=== PATIENT | female | born 1965 | race Caucasian/White ===

== ENCOUNTER 2017-07-08 16:50 | Observation (INO) ==
--- NOTE | 2017-07-08 17:53 | Emergency Department Note ---
Disposition Clinical Impression: Slurred speech Altered mental status Qualifiers: Altered mental status type: unspecified Qualified Code(s): R41.82 - Altered mental status, unspecified Disposition: Admitted As Inpatient Condition: Good Referrals: Mukul Reddy DO [Primary Care Provider] - Forms: Work/School Release, ED Satisfaction Letter Time of Disposition: 19:30 General Adult HPI - General Chief complaint: ED General Medical Stated complaint: htn Time Seen by Provider: 07/08/17 17:44 Source: patient Mode of arrival: ambulatory Limitations: no limitations Nursing Notes Reviewed: Yes Vital Signs Reviewed: Yes - History of Present Illness HPI Narrative: 51-year-old who comes in after an episode began last p.m. which she developed slurred speech became confused and not able to answer questions appropriately and she was unresponsive to the family members. This lasted several hours. She had a similar episode about 4 weeks ago. Her speech is cleared since that time. Pt Subjective Complaint: Altered mental status Onset (ago): hour(s) Pain Scale: 0 - Related Data Home Medications Medication Instructions Recorded Confirmed Albuterol Sulfate [Proair Hfa] 2 puff IH Q4H PRN 07/02/17 07/02/17 Amitriptyline [Elavil] 25 mg PO HS 07/02/17 07/02/17 Amlodipine Besylate 2.5 mg PO DAILY 07/02/17 07/02/17 Ammonium Lactate [Leydi-Hydrolac] 1 appl TP DAILY PRN 07/02/17 07/02/17 Cholecalciferol (Vitamin D3) 5,000 unit PO DAILY 07/02/17 07/02/17 [Vitamin D3] Cyanocobalamin (Vitamin B-12) 1,000 mcg PO MOWEFR 07/02/17 07/02/17 [Vitamin B12] FLUoxetine HCl [Fluoxetine HCl] 40 mg PO QAM 07/02/17 07/02/17 Fluticasone Propionate Nasal 50 mcg NS DAILY PRN 07/02/17 07/02/17 [Flonase] Glimepiride [Amaryl] 1 mg PO QAM 07/02/17 07/02/17 Glimepiride [Amaryl] 1.5 mg PO QPM 07/02/17 07/02/17 HYDROcodone/Acet 5/325 mg [[place] 1 tab PO BID PRN 07/02/17 07/02/17 5-325 mg] L. Acidophilus/Pectin, [place] 1 each PO DAILY 07/02/17 07/02/17 [Acidophilus Probiotic Capsule] Loratadine [Claritin] 10 mg PO DAILY PRN 07/02/17 07/02/17 Metformin HCl [Glucophage] 1,000 mg PO BID 07/02/17 07/02/17 Metoprolol [Lopressor] 25 mg PO BID 07/02/17 07/02/17 Tizanidine HCl [Zanaflex] 4 mg PO TID PRN 07/02/17 07/02/17 Valsartan [Diovan] 160 mg PO DAILY 07/02/17 07/02/17 Previous Rx's Medication Instructions Recorded Aspirin Enteric Coated [Aspirin EC] 81 mg PO DAILY #30 07/03/17 Rosuvastatin [Crestor] 20 mg PO HS #30 tab 07/03/17 predniSONE [PredniSONE] 20 mg PO DAILY #4 tab 07/03/17 Allergies Allergy/AdvReac Type Severity Reaction Status Date / Time Amoxicillin [From Augmentin] AdvReac Vomiting Verified 07/01/17 23:33 clavulanic acid AdvReac Vomiting Verified 07/01/17 23:33 [From Augmentin] [id number]-Uoy Reductase AdvReac Muscle Pain Verified 07/02/17 03:34 Inhibitor [Statins] All systems ED: reviewed and negative except as stated. Constitutional: Denies: fever, chills, weakness, weight change Eyes: Denies: eye pain, eye discharge, vision change ENT ED: Denies: ear pain, throat pain, dental pain, hearing loss, epistaxis, congestion, dysphagia Cardiovascular: Denies: chest pain, palpitations, dyspnea on exertion, edema, syncope Respiratory: Denies: cough, dyspnea, wheezes, hemoptysis, stridor Gastrointestinal: Denies: abdominal pain, nausea, vomiting, diarrhea, constipation, hematemesis, melena, hematochezia Genitourinary: Denies: dysuria, frequency, hematuria, discharge Musculoskeletal: Denies: back pain, neck pain, arthralgia, myalgia Integumentary: Denies: rash, abrasion, lesions Neurological: Reports: confusion, other (Altered mental status and slurred speech). Denies: headache, weakness, numbness, paresthesias, abnormal gait, vertigo Psychiatric: Denies: anxiety, depression, suicidal thoughts, homicidal thoughts , auditory hallucinations, visual hallucinations Endocrine: Denies: fatigue Hematological/Lymphatic: Denies: easy bleeding, easy bruising Allergic/Immunologic: Denies: facial swelling, urticaria Past Medical History - Past Medical History Medical history: Reports: arthritis, diabetes, fibromyalgia, hyperlipidemia, hypertension, renal disease, other Surgical history: Reports: cholecystectomy, other Psychiatric history: Reports: anxiety, depression - Social History Smoking Status: Never smoker Smokeless Tobacco Status: No Alcohol use: Reports: none Drug use: Reports: none Physical Exam - General Limitations: no limitations General appearance: alert - Head Head exam: atraumatic, normocephalic, normal inspection - Eye Eye exam: Present: normal appearance, PERRL, EOMI - ENT ENT exam: normal exam, normal oropharynx, mucous membranes moist - Neck Neck exam: Present: normal inspection, full ROM, trachea midline - Chest Chest inspection: Present: normal inspection, symmetric chest wall rise - Respiratory Respiratory exam: Present: normal lung sounds bilaterally - Cardiovascular Cardiovascular exam: Present: regular rate, normal rhythm, normal heart sounds - Abdominal Exam Abdominal exam: Present: soft, Non-Tender. Absent: tenderness, distention, guarding, rebound, rigidity - Extremities Exam Extremities exam: Present: normal inspection, full ROM. Absent: tenderness, pedal edema - Expanded Lower Extremity Exam Neurovascular/Tendon exam: Absent: motor deficit, sensory deficit, tendon deficit Gait: observed and normal - Back Exam Back exam: Present: normal inspection, full ROM. Absent: tenderness - Neurological Exam Neurological exam: Present: alert, oriented X3. Absent: motor sensory deficit - Psychiatric Psychiatric exam: Present: normal affect, normal mood - Skin Skin exam: Present: warm, dry, intact, normal color Course - Reevaluation(s) Reevaluation #1: 51-year-old who had episodes of confusion and slurred speech and unresponsiveness earlier today she had a previous episode about 4 weeks ago. She is awake alert now family members are here and states the not sure what happens but she has slurred speech cannot communicate is confused. Differential includes seizure, TIA with slurred speech that resolved. Will be admitted for further evaluation and treatment. Time: 19:31 - Consultations Consultation #1: Discussed with , admit. Time: 19:57 Vital Signs Temperature 98.5 F 07/08/17 16:53 Pulse Rate 86 07/08/17 16:53 Respiratory Rate 16 07/08/17 16:53 Blood Pressure 169/83 07/08/17 16:53 O2 Sat by Pulse Oximetry 95 07/08/17 16:53 Temperature 98.5 F 07/08/17 16:53 Pulse Rate 80 07/08/17 19:35 Respiratory Rate 18 07/08/17 19:35 Blood Pressure 148/81 07/08/17 19:35 O2 Sat by Pulse Oximetry 98 07/08/17 19:35 Oxygen Delivery Oxygen Delivery Room Air Medical Decision Making - Differential Diagnosis Seizure disorder TIA - Lab Data Result diagrams: 07/08/17 18:26 07/08/17 18:26 Lab Results 07/08/17 07/08/17 07/08/17 Range/Units 18:26 18:26 18:26 WBC 12.3 H (4.3-11.1) K/mcL RBC 4.27 (3.82-4.97) M/mcL Hgb 11.3 L (11.5-15.4) g/dL Hct 36.0 (35.3-44.9) % MCV 84.3 (83.0-100.0) fL MCH 26.5 L (28.0-33.3) pg MCHC 31.4 L (31.6-35.5) g/dL RDW 14.4 (11.5-14.5) % Plt Count 368 (140-400) K/mcL MPV 9.3 L (9.4-12.4) fL Immature Gran % 0.5 (0-4) % Seg Neutrophils % 66.8 % Lymphocytes % 22.7 % Monocytes % 5.8 % Eosinophils % 3.7 % Basophils % 0.5 % Neutrophils # 8.2 (1.6-8.9) K/mcL Lymphocytes # 2.8 (0.6-4.6) K/mcL Monocytes # 0.7 (0.0-1.3) K/mcL Eosinophils # 0.5 (0.0-0.6) K/mcL Basophils # 0.1 (0.0-0.2) K/mcL PT 10.1 (9.4-12.1) Seconds INR 0.9 APTT 27.6 (26.0-36.0) Seconds Sodium 139 (136-145) mEq/L Potassium 4.0 (3.5-4.5) mEq/L Chloride 107 (98-109) mEq/L Carbon Dioxide 20 (19-29) mEq/L BUN 16 (7-20) mg/dL Creatinine 0.96 (0.57-1.11) mg/dL Est GFR ( Amer) > 60 (> 60) Est GFR (Non-Af Amer) > 60 (> 60) BUN/Creatinine Ratio 17 (6-26) Glucose 195 H (70-99) mg/dL POC Glucose (58-89) Calculated Osmolality 295 (280-300) Calcium 9.6 (8.6-10.8) mg/dL Total Bilirubin 0.2 (0.2-1.2) mg/dL Direct Bilirubin < 0.1 (0.0-0.5) mg/dL Indirect Bilirubin 0.1 (0.0-1.2) mg/dL AST 28 (5-34) Units/L ALT 27 (0-55) Units/L Alkaline Phosphatase 66 (38-126) Units/L Troponin I (0-0.03) ng/mL Serum Total Protein 7.6 (6.0-8.3) g/dL Albumin 3.4 L (3.5-5.0) g/dL Globulin 4.2 H (2.4-3.5) g/dL Albumin/Globulin Ratio 0.8 L (1.1-2.2) Urine Color (Yellow) Urine Clarity (Clear) Urine pH (5.0-8.0) pH Units Ur Specific [place] (1.010-1.025) Urine Protein (Neg-Trace) mg/dL Urine Glucose (UA) (Normal) mg/dL Urine Ketones (Negative) mg/dL Urine Blood (Negative) Urine Nitrite (Negative) Urine Bilirubin (Negative) Urine Urobilinogen (Normal) mg/dL Ur Leukocyte Esterase (Negative) Urine Microscopic RBC (0-3) per hpf Urine Microscopic WBC (0-3) per hpf Ur Squamous Epith Cells (None-Few) per lpf Urine Bacteria (None-Few) per hpf Hyaline Casts (None-Few) per lpf Ur Culture Indicated? (NO) Urine Opiates Screen (Vwnbzg=469) ng/mL Ur Barbiturates Screen (Cpfnyt=384) ng/mL Ur Phencyclidine Scrn (Cutoff=25) ng/mL Ur Amphetamines Screen (Tqhbvs=2848) ng/mL U Benzodiazepines Scrn (Tsnwmy=389) ng/mL Urine Cocaine Screen (Cutoff= 300) ng/mL U Marijuana (THC) Screen (Cutoff = 50) ng/mL Ethyl Alcohol < 10 (0-10) mg/dL 07/08/17 07/08/17 07/08/17 Range/Units 18:26 18:34 19:20 WBC (4.3-11.1) K/mcL RBC (3.82-4.97) M/mcL Hgb (11.5-15.4) g/dL Hct (35.3-44.9) % MCV (83.0-100.0) fL MCH (28.0-33.3) pg MCHC (31.6-35.5) g/dL RDW (11.5-14.5) % Plt Count (140-400) K/mcL MPV (9.4-12.4) fL Immature Gran % (0-4) % Seg Neutrophils % % Lymphocytes % % Monocytes % % Eosinophils % % Basophils % % Neutrophils # (1.6-8.9) K/mcL Lymphocytes # (0.6-4.6) K/mcL Monocytes # (0.0-1.3) K/mcL Eosinophils # (0.0-0.6) K/mcL Basophils # (0.0-0.2) K/mcL PT (9.4-12.1) Seconds INR APTT (26.0-36.0) Seconds Sodium (136-145) mEq/L Potassium (3.5-4.5) mEq/L Chloride (98-109) mEq/L Carbon Dioxide (19-29) mEq/L BUN (7-20) mg/dL Creatinine (0.57-1.11) mg/dL Est GFR ( Amer) (> 60) Est GFR (Non-Af Amer) (> 60) BUN/Creatinine Ratio (6-26) Glucose (70-99) mg/dL POC Glucose 195 H (58-89) Calculated Osmolality (280-300) Calcium (8.6-10.8) mg/dL Total Bilirubin (0.2-1.2) mg/dL Direct Bilirubin (0.0-0.5) mg/dL Indirect Bilirubin (0.0-1.2) mg/dL AST (5-34) Units/L ALT (0-55) Units/L Alkaline Phosphatase (38-126) Units/L Troponin I 0.00 (0-0.03) ng/mL Serum Total Protein (6.0-8.3) g/dL Albumin (3.5-5.0) g/dL Globulin (2.4-3.5) g/dL Albumin/Globulin Ratio (1.1-2.2) Urine Color Yellow (Yellow) Urine Clarity Clear (Clear) Urine pH 6.0 (5.0-8.0) pH Units Ur Specific [place] 1.020 (1.010-1.025) Urine Protein >=300 H (Neg-Trace) mg/dL Urine Glucose (UA) Normal (Normal) mg/dL Urine Ketones Negative (Negative) mg/dL Urine Blood Trace H (Negative) Urine Nitrite Negative (Negative) Urine Bilirubin Negative (Negative) Urine Urobilinogen Normal (Normal) mg/dL Ur Leukocyte Esterase Negative (Negative) Urine Microscopic RBC 0-3 (0-3) per hpf Urine Microscopic WBC 5-15 H (0-3) per hpf Ur Squamous Epith Cells Many H (None-Few) per lpf Urine Bacteria None Seen (None-Few) per hpf Hyaline Casts None Seen (None-Few) per lpf Ur Culture Indicated? YES A (NO) Urine Opiates Screen (Ttqtco=580) ng/mL Ur Barbiturates Screen (Xuisuv=562) ng/mL Ur Phencyclidine Scrn (Cutoff=25) ng/mL Ur Amphetamines Screen (Nyfauu=2932) ng/mL U Benzodiazepines Scrn (Xqhole=957) ng/mL Urine Cocaine Screen (Cutoff= 300) ng/mL U Marijuana (THC) Screen (Cutoff = 50) ng/mL Ethyl Alcohol (0-10) mg/dL 07/08/17 Range/Units 19:20 WBC (4.3-11.1) K/mcL RBC (3.82-4.97) M/mcL Hgb (11.5-15.4) g/dL Hct (35.3-44.9) % MCV (83.0-100.0) fL MCH (28.0-33.3) pg MCHC (31.6-35.5) g/dL RDW (11.5-14.5) % Plt Count (140-400) K/mcL MPV (9.4-12.4) fL Immature Gran % (0-4) % Seg Neutrophils % % Lymphocytes % % Monocytes % % Eosinophils % % Basophils % % Neutrophils # (1.6-8.9) K/mcL Lymphocytes # (0.6-4.6) K/mcL Monocytes # (0.0-1.3) K/mcL Eosinophils # (0.0-0.6) K/mcL Basophils # (0.0-0.2) K/mcL PT (9.4-12.1) Seconds INR APTT (26.0-36.0) Seconds Sodium (136-145) mEq/L Potassium (3.5-4.5) mEq/L Chloride (98-109) mEq/L Carbon Dioxide (19-29) mEq/L BUN (7-20) mg/dL Creatinine (0.57-1.11) mg/dL Est GFR ( Amer) (> 60) Est GFR (Non-Af Amer) (> 60) BUN/Creatinine Ratio (6-26) Glucose (70-99) mg/dL POC Glucose (58-89) Calculated Osmolality (280-300) Calcium (8.6-10.8) mg/dL Total Bilirubin (0.2-1.2) mg/dL Direct Bilirubin (0.0-0.5) mg/dL Indirect Bilirubin (0.0-1.2) mg/dL AST (5-34) Units/L ALT (0-55) Units/L Alkaline Phosphatase (38-126) Units/L Troponin I (0-0.03) ng/mL Serum Total Protein (6.0-8.3) g/dL Albumin (3.5-5.0) g/dL Globulin (2.4-3.5) g/dL Albumin/Globulin Ratio (1.1-2.2) Urine Color (Yellow) Urine Clarity (Clear) Urine pH (5.0-8.0) pH Units Ur Specific [place] (1.010-1.025) Urine Protein (Neg-Trace) mg/dL Urine Glucose (UA) (Normal) mg/dL Urine Ketones (Negative) mg/dL Urine Blood (Negative) Urine Nitrite (Negative) Urine Bilirubin (Negative) Urine Urobilinogen (Normal) mg/dL Ur Leukocyte Esterase (Negative) Urine Microscopic RBC (0-3) per hpf Urine Microscopic WBC (0-3) per hpf Ur Squamous Epith Cells (None-Few) per lpf Urine Bacteria (None-Few) per hpf Hyaline Casts (None-Few) per lpf Ur Culture Indicated? (NO) Urine Opiates Screen Negative (Ijxjoi=545) ng/mL Ur Barbiturates Screen Negative (Zjurcz=016) ng/mL Ur Phencyclidine Scrn Negative (Cutoff=25) ng/mL Ur Amphetamines Screen Negative (Bfgggm=2007) ng/mL U Benzodiazepines Scrn Negative (Cbennv=550) ng/mL Urine Cocaine Screen Negative (Cutoff= 300) ng/mL U Marijuana (THC) Screen Negative (Cutoff = 50) ng/mL Ethyl Alcohol (0-10) mg/dL - Radiology Data Radiology results reviewed: Yes I reviewed the patient's radiology results. Chest X-Ray 07/08/17 17:49 IMPRESSION: No evidence of acute cardiopulmonary disease. D/ / Colby Banuelos MD / Colby Banuelos MD Interpreting Provider: Colby Banuelos MD Head CT 07/08/17 17:50 IMPRESSION: No acute intracranial abnormality. D/ / Conor Martinez MD / Conor aMrtinez MD Interpreting Provider: Conor Martinez MD - EKG Data EKG #1 EKG attestation: Yes I reviewed and interpreted this EKG. EKG shows normal: sinus rhythm Rate: normal Rhythm: NSR Interpretation: no acute changes
[2017-07-08 18:36] LABS: Basophils # 0.1 K/mcL (0.0-0.2); Basophils % 0.5 %; Eosinophils # 0.5 K/mcL (0.0-0.6); Eosinophils % 3.7 %; Hemoglobin 11.3 g/dL (11.5-15.4); Immature Granulocytes % 0.5 % (0-4); Lymphocytes # 2.8 K/mcL (0.6-4.6); Lymphocytes % 22.7 %; Mean Corpuscular HGB Conc 31.4 g/dL (31.6-35.5); Mean Corpuscular Hemoglobin 26.5 pg (28.0-33.3); Mean Corpuscular Volume 84.3 fL (83.0-100.0); Mean Platelet Volume 9.3 fL (9.4-12.4); Monocytes # 0.7 K/mcL (0.0-1.3); Monocytes % 5.8 %; Neutrophils # 8.2 K/mcL (1.6-8.9); Platelet Count 368 K/mcL (140-400); Red Blood Count 4.27 M/mcL (3.82-4.97); Red Cell Distribution Width 14.4 % (11.5-14.5); Segmented Neutrophils % 66.8 %
[2017-07-08 18:45] LABS: INR 0.9; Prothrombin Time 10.1 Seconds (9.4-12.1)
[2017-07-08 18:48] LABS: Activated Partial Thrombo Time 27.6 Seconds (26.0-36.0)
[2017-07-08 18:54] LABS: Alanine Aminotransferase 27 Units/L (0-55); Albumin 3.4 g/dL (3.5-5.0); Albumin/Globulin Ratio 0.8 (1.1-2.2); Alkaline Phosphatase 66 Units/L (38-126); Aspartate Amino Transferase 28 Units/L (5-34); BUN/Creatinine Ratio 17 (6-26); Bilirubin,Indirect 0.1 mg/dL (0.0-1.2); Bilirubin,Total 0.2 mg/dL (0.2-1.2); Blood Urea Nitrogen 16 mg/dL (7-20); Calcium 9.6 mg/dL (8.6-10.8); Carbon Dioxide 20 mEq/L (19-29); Chloride 107 mEq/L (98-109); Globulin 4.2 g/dL (2.4-3.5); Glucose 195 mg/dL (70-99); Osmolality,Calculated 295 (280-300); Sodium 139 mEq/L (136-145); Total Protein 7.6 g/dL (6.0-8.3); eGFR For African Americans > 60 (> 60); eGFR For Non-African Americans > 60 (> 60)
[2017-07-08 18:57] LABS: Bilirubin,Direct < 0.1 mg/dL (0.0-0.5)
[2017-07-08 19:04] LABS: Ethanol < 10 mg/dL (0-10)
[2017-07-08 19:35] LABS: Bilirubin,Urine Negative (Negative); Blood,Urine Trace (Negative); Clarity,Urine Clear (Clear); Color,Urine Yellow (Yellow); Glucose,Urine (UA) Normal (Normal); Ketones,Urine Negative (Negative); Leukocyte Esterase,Urine Negative (Negative); Nitrite,Urine Negative (Negative); Protein,Urine >=300 mg/dL (Neg-Trace); Urobilinogen,Urine Normal (Normal)
[2017-07-08 19:41] LABS: Amphetamine Screen,Urine Negative ng/mL (Cutoff=1000); Bacteria,Urine None Seen per hpf (None-Few); Barbiturate Screen,Urine Negative ng/mL (Cutoff=200); Benzodiazepines Screen,Urine Negative ng/mL (Cutoff=200); Cannabinoid Screen,Urine Negative ng/mL (Cutoff = 50); Cocaine Screen,Urine Negative ng/mL (Cutoff= 300); Hyaline Casts,Urine None Seen per lpf (None-Few); Opiate Screen,Urine Negative ng/mL (Cutoff=300); Phencyclidine Screen,Urine Negative ng/mL (Cutoff=25); RBC,Urine 0-3 per hpf (0-3); Squamous Epithelial Cell,Urine Many per lpf (None-Few)
[2017-07-08] MEDS ORDERED: Insulin LISPRO 300 UNITS/3 ML VIAL SQ SCH (21:00)
[2017-07-08] MEDS ORDERED: Naloxone 0.4 MG/ML INJ IVP PRN (21:01)
[2017-07-08] MEDS ORDERED: Acetaminophen 325 MG TABLET PO PRN (21:01)
[2017-07-08] MEDS ORDERED: Fluticasone Propionate Nasal 50 MCG/SPRAY BOTTLE NS PRN (21:03)
[2017-07-08] MEDS ORDERED: *HR* HYDROcodone/Acet 5/325 mg TABLET PO PRN (21:03)
[2017-07-08] MEDS ORDERED: tiZANidine 4 MG TABLET PO PRN (21:03)
--- NOTE | 2017-07-08 21:14 | Internal Med History&Physical ---
Date of Encounter: 07/08/17 Time of Encounter: 21:10 Assessment and Plan (1) Altered mental status Current visit: Yes Status: Acute Patient reports 2 episodes where she feels unwell in the afternoon, she develops sudden dry mouth, disorientation, dizziness with position change and slurred speech followed by non-responsiveness or "sleeping" and memory loss. She denies loss of bowel or bladder control. She denies history of seizure. CT head showed no acute intracranial abnormality. EKG showed normal sinus rhythm with no acute changes. Troponin negative at 0.00. Continuous monitoring specialist MRI of head/brain w/o contrast carotid dopplers EEG Consult to neurology. Qualifiers: Altered mental status type: transient alteration of awareness Qualified Code(s): R40.4 - Transient alteration of awareness (2) Slurred speech Current visit: Yes Status: Acute Transient, accompanied by episodes of alterned mental status. See plan above. (3) Hypertension Current visit: Yes Status: Acute Relatively controlled since arrival. Continue home doses of metoprolol, amlodipine and valsartan Qualifiers: Hypertension type: essential hypertension Qualified Code(s): I10 - Essential (primary) hypertension (4) Type 2 diabetes mellitus Current visit: Yes Status: Chronic Hold metformin and glimeperide diabetic diet check blood ACHS sliding scale correction dose ACHS hypoglycemic protocol. Qualifiers: Diabetes mellitus complication status: without complication Diabetes mellitus assisted insulin use: without assisted use Qualified Code(s): E11.9 - Type 2 diabetes mellitus without complications (5) DVT prophylaxis Current visit: Yes Status: Acute anti-embolic stockings lovenox SQ daily Internal Medicine - H&P: HPI Chief complaint: AMS Admitted From: Emergency Dept Plans for Post Hospital Care: Home History of present illness: Ms. Garsia is a 51 year old female with hypertension, hyperlipidemia, fibromyalgia, type 2 diabetes, presented to the emergency department today with complaints of transient slurred speech and altered mental status. Patient reports that approximately 4 weeks ago she had an episode where her mouth became suddenly dry, she became disoriented, and then she does not remember what happened, per family report her speech was slurred and she was not responsive patient reports she fell asleep and when she woke up she was at her baseline. She reports this happened again last evening with the exact same sequence of symptoms. She reports during these episodes she feels dizzy when she changes position and stands up and she feels weak all over. She reports that leading up to the episode she feels a little under the weather. She reports she is checked her blood sugar and her blood sugar is in the 200s, she reports last evening her blood pressure was 100 systolic which is low for her. She denies any chest pain, palpitations, shortness of breath, fever, chills, sweats, dysuria, nausea, vomiting or diarrhea. Evaluation in emergency department included a head CT which showed no acute intracranial abnormality, EKG showed no normal sinus rhythm and no acute changes, chest x-ray showed no acute disease. Troponin was negative at 0.00. Urinalysis was negative for infection. White blood cell count was mildly elevated at 12.3. She was mildly hyperglycemic with glucose of 195. On exam, patient alert and oriented, in no acute distress. Heart has regular rate and rhythm, lungs are clear bilaterally to auscultation. Abdomen is soft nontender, no palpable masses, and positive bowel sounds. No peripheral edema, peripheral pulses intact. No focal neurological deficits. Cranial nerves are intact, no facial droop, no slurred speech. Past Med Surg Social Fam HX - Past Medical History Medical history: arthritis, diabetes, fibromyalgia, hyperlipidemia, hypertension , renal disease, other Psychiatric history: anxiety, depression - Past Surgical History Surgical History: cholecystectomy, orthopedic, other, other - Social History Smoking Status: Never smoker Smokeless Tobacco Status: No Alcohol use: none Drug use: none - Family History Mother Hx Family Cardiac Disorders: Yes ([place]) Hx Family Endocrine Disorder: Yes ([place]) Father Hx Family Cardiac Disorders: Yes (VALVE REPLACEMENT) Internal Medicine - H&P: Meds Albuterol Sulfate [Proair Hfa] 2 puff IH Q4H PRN 07/02/17 [History] Amitriptyline [Elavil] 25 mg PO HS 07/02/17 [History] Amlodipine Besylate 2.5 mg PO DAILY 07/02/17 [History] Ammonium Lactate [Leydi-Hydrolac] 1 appl TP DAILY PRN 07/02/17 [History] Cholecalciferol (Vitamin D3) [Vitamin D3] 5,000 unit PO DAILY 07/02/17 [History] Cyanocobalamin (Vitamin B-12) [Vitamin B12] 1,000 mcg PO MOWEFR 07/02/17 [ History] FLUoxetine HCl [Fluoxetine HCl] 40 mg PO QAM 07/02/17 [History] Fluticasone Propionate Nasal [Flonase] 50 mcg NS DAILY PRN 07/02/17 [History] Glimepiride [Amaryl] 1 mg PO QAM 07/02/17 [History] Glimepiride [Amaryl] 1.5 mg PO QPM 07/02/17 [History] HYDROcodone/Acet 5/325 mg [[place] 5-325 mg] 1 tab PO BID PRN 07/02/17 [History] L. Acidophilus/Pectin, [place] [Acidophilus Probiotic Capsule] 1 each PO DAILY [History] Loratadine [Claritin] 10 mg PO DAILY PRN 07/02/17 [History] Metformin HCl [Glucophage] 1,000 mg PO BID 07/02/17 [History] Metoprolol [Lopressor] 25 mg PO BID 07/02/17 [History] Tizanidine HCl [Zanaflex] 4 mg PO TID PRN 07/02/17 [History] Valsartan [Diovan] 160 mg PO DAILY 07/02/17 [History] Aspirin Enteric Coated [Aspirin EC] 81 mg PO DAILY #30 07/03/17 [Rx] Rosuvastatin [Crestor] 20 mg PO HS #30 tab 07/03/17 [Rx] 3 Allergy/AdvReac Type Severity Reaction Status Date / Time Amoxicillin [From Augmentin] AdvReac Vomiting Verified 07/01/17 23:33 clavulanic acid AdvReac Vomiting Verified 07/01/17 23:33 [From Augmentin] Dxzterw-Anh-Jjz Reductase AdvReac Muscle Pain Verified 07/02/17 03:34 Inhibitor [Statins] All Systems PM: A 10-system review of systems was performed and is negative for pertinent findings except as documented above in the HPI. - Constitutional Constitutional: weakness, no chills, no fever(s), no night sweats - EENT Eyes: no change in vision, no discharge, no pain, no photophobia Ears: no ear discharge, no ear pain, no tinnitus Nose, mouth and throat: dry mouth, no dysphagia, no nasal discharge, no neck pain, no sore throat - Cardiovascular Cardiovascular ROS IM: lightheadedness, no chest pain, no diaphoresis, no dyspnea, no palpitations, no syncope - Respiratory Respiratory: no cough, no dyspnea, no wheezing, no excessive phlegm production - Gastrointestinal Gastrointestinal: no abdominal pain, no diarrhea, no hematemesis, no hematochezia, no melena, no nausea, no vomiting - Genitourinary Genitourinary: no change in urinary stream, no dysuria, no flank pain, no hematuria - Musculoskeletal Musculoskeletal ROS IM: no numbness, no tingling - Integumentary Integumentary IM: no rash, no unusual bruising - Neurological Neurological ROS: abnormal speech, confusion, dizziness, memory loss, weakness, no convulsions, no focal weakness, no numbness, no tingling, no tremor(s) - Hematologic/Lymphatic Hematologic/Lymphatic: no easy bruising - Constitutional Vitals: Temp Pulse Resp BP Pulse Ox 98.5 F 97 16 140/80 98 07/08/17 16:53 07/08/17 20:34 07/08/17 21:07 07/08/17 21:07 07/08/17 20:34 General appearance: Present: A&O X 3, pleasant, no acute distress - Head Head exam: Present: atraumatic, normocephalic - Eye Eye exam: Present: PERRL, conjuntiva pink, sclera anicteric Pupils: Present: PERRL - Neck Neck exam general surgery: Present: supple, trachea midline. Absent: lymphadenopathy - Respiratory Respiratory exam: Present: CTAB. Absent: accessory muscle use, rales, rhonchi, wheezes - Cardiovascular Cardiovascular exam: Present: RRR, +S1, +S2. Absent: diastolic murmur, gallop, rubs, systolic murmur - GI/Abdominal GI/Abdominal exam: Present: normal bowel sounds, soft, no peritoneal signs. Absent: distended, tenderness - Extremities Exam Extremities exam: Present: warm, radial pulses palpable and symmetrical. Absent : calf tenderness, cyanotic, pedal edema - Neurological Exam Neurological exam: Present: CN II-XII intact, oriented X3, no focal deficits. Absent: pronater drift, facial droop, speech deficit - Skin Skin exam: Present: dry, intact Internal Med - H&P Results - Labs CBC & Chem 7: 07/08/17 18:26 07/08/17 18:26 Labs: All Lab Results (24 Hours) 07/08/17 07/08/17 07/08/17 Range/Units 18:26 18:26 18:26 WBC 12.3 H (4.3-11.1) K/mcL RBC 4.27 (3.82-4.97) M/mcL Hgb 11.3 L (11.5-15.4) g/dL Hct 36.0 (35.3-44.9) % MCV 84.3 (83.0-100.0) fL MCH 26.5 L (28.0-33.3) pg MCHC 31.4 L (31.6-35.5) g/dL RDW 14.4 (11.5-14.5) % Plt Count 368 (140-400) K/mcL MPV 9.3 L (9.4-12.4) fL Immature Gran % 0.5 (0-4) % Seg Neutrophils % 66.8 % Lymphocytes % 22.7 % Monocytes % 5.8 % Eosinophils % 3.7 % Basophils % 0.5 % Neutrophils # 8.2 (1.6-8.9) K/mcL Lymphocytes # 2.8 (0.6-4.6) K/mcL Monocytes # 0.7 (0.0-1.3) K/mcL Eosinophils # 0.5 (0.0-0.6) K/mcL Basophils # 0.1 (0.0-0.2) K/mcL PT 10.1 (9.4-12.1) Seconds INR 0.9 APTT 27.6 (26.0-36.0) Seconds Sodium 139 (136-145) mEq/L Potassium 4.0 (3.5-4.5) mEq/L Chloride 107 (98-109) mEq/L Carbon Dioxide 20 (19-29) mEq/L BUN 16 (7-20) mg/dL Creatinine 0.96 (0.57-1.11) mg/dL Est GFR ( Amer) > 60 (> 60) Est GFR (Non-Af Amer) > 60 (> 60) BUN/Creatinine Ratio 17 (6-26) Glucose 195 H (70-99) mg/dL POC Glucose (58-89) Calculated Osmolality 295 (280-300) Calcium 9.6 (8.6-10.8) mg/dL Total Bilirubin 0.2 (0.2-1.2) mg/dL Direct Bilirubin < 0.1 (0.0-0.5) mg/dL Indirect Bilirubin 0.1 (0.0-1.2) mg/dL AST 28 (5-34) Units/L ALT 27 (0-55) Units/L Alkaline Phosphatase 66 (38-126) Units/L Troponin I (0-0.03) ng/mL Serum Total Protein 7.6 (6.0-8.3) g/dL Albumin 3.4 L (3.5-5.0) g/dL Globulin 4.2 H (2.4-3.5) g/dL Albumin/Globulin Ratio 0.8 L (1.1-2.2) Urine Color (Yellow) Urine Clarity (Clear) Urine pH (5.0-8.0) pH Units Ur Specific [place] (1.010-1.025) Urine Protein (Neg-Trace) mg/dL Urine Glucose (UA) (Normal) mg/dL Urine Ketones (Negative) mg/dL Urine Blood (Negative) Urine Nitrite (Negative) Urine Bilirubin (Negative) Urine Urobilinogen (Normal) mg/dL Ur Leukocyte Esterase (Negative) Urine Microscopic RBC (0-3) per hpf Urine Microscopic WBC (0-3) per hpf Ur Squamous Epith Cells (None-Few) per lpf Urine Bacteria (None-Few) per hpf Hyaline Casts (None-Few) per lpf Ur Culture Indicated? (NO) Urine Opiates Screen (Ttmcyb=010) ng/mL Ur Barbiturates Screen (Aognfr=399) ng/mL Ur Phencyclidine Scrn (Cutoff=25) ng/mL Ur Amphetamines Screen (Kyyraf=3074) ng/mL U Benzodiazepines Scrn (Bknpli=804) ng/mL Urine Cocaine Screen (Cutoff= 300) ng/mL U Marijuana (THC) Screen (Cutoff = 50) ng/mL Ethyl Alcohol < 10 (0-10) mg/dL 07/08/17 07/08/17 07/08/17 Range/Units 18:26 18:34 19:20 WBC (4.3-11.1) K/mcL RBC (3.82-4.97) M/mcL Hgb (11.5-15.4) g/dL Hct (35.3-44.9) % MCV (83.0-100.0) fL MCH (28.0-33.3) pg MCHC (31.6-35.5) g/dL RDW (11.5-14.5) % Plt Count (140-400) K/mcL MPV (9.4-12.4) fL Immature Gran % (0-4) % Seg Neutrophils % % Lymphocytes % % Monocytes % % Eosinophils % % Basophils % % Neutrophils # (1.6-8.9) K/mcL Lymphocytes # (0.6-4.6) K/mcL Monocytes # (0.0-1.3) K/mcL Eosinophils # (0.0-0.6) K/mcL Basophils # (0.0-0.2) K/mcL PT (9.4-12.1) Seconds INR APTT (26.0-36.0) Seconds Sodium (136-145) mEq/L Potassium (3.5-4.5) mEq/L Chloride (98-109) mEq/L Carbon Dioxide (19-29) mEq/L BUN (7-20) mg/dL Creatinine (0.57-1.11) mg/dL Est GFR ( Amer) (> 60) Est GFR (Non-Af Amer) (> 60) BUN/Creatinine Ratio (6-26) Glucose (70-99) mg/dL POC Glucose 195 H (58-89) Calculated Osmolality (280-300) Calcium (8.6-10.8) mg/dL Total Bilirubin (0.2-1.2) mg/dL Direct Bilirubin (0.0-0.5) mg/dL Indirect Bilirubin (0.0-1.2) mg/dL AST (5-34) Units/L ALT (0-55) Units/L Alkaline Phosphatase (38-126) Units/L Troponin I 0.00 (0-0.03) ng/mL Serum Total Protein (6.0-8.3) g/dL Albumin (3.5-5.0) g/dL Globulin (2.4-3.5) g/dL Albumin/Globulin Ratio (1.1-2.2) Urine Color Yellow (Yellow) Urine Clarity Clear (Clear) Urine pH 6.0 (5.0-8.0) pH Units Ur Specific [place] 1.020 (1.010-1.025) Urine Protein >=300 H (Neg-Trace) mg/dL Urine Glucose (UA) Normal (Normal) mg/dL Urine Ketones Negative (Negative) mg/dL Urine Blood Trace H (Negative) Urine Nitrite Negative (Negative) Urine Bilirubin Negative (Negative) Urine Urobilinogen Normal (Normal) mg/dL Ur Leukocyte Esterase Negative (Negative) Urine Microscopic RBC 0-3 (0-3) per hpf Urine Microscopic WBC 5-15 H (0-3) per hpf Ur Squamous Epith Cells Many H (None-Few) per lpf Urine Bacteria None Seen (None-Few) per hpf Hyaline Casts None Seen (None-Few) per lpf Ur Culture Indicated? YES A (NO) Urine Opiates Screen (Ituqjr=307) ng/mL Ur Barbiturates Screen (Mlvzzv=632) ng/mL Ur Phencyclidine Scrn (Cutoff=25) ng/mL Ur Amphetamines Screen (Qxpobt=0575) ng/mL U Benzodiazepines Scrn (Chhwqv=810) ng/mL Urine Cocaine Screen (Cutoff= 300) ng/mL U Marijuana (THC) Screen (Cutoff = 50) ng/mL Ethyl Alcohol (0-10) mg/dL 07/08/17 Range/Units 19:20 WBC (4.3-11.1) K/mcL RBC (3.82-4.97) M/mcL Hgb (11.5-15.4) g/dL Hct (35.3-44.9) % MCV (83.0-100.0) fL MCH (28.0-33.3) pg MCHC (31.6-35.5) g/dL RDW (11.5-14.5) % Plt Count (140-400) K/mcL MPV (9.4-12.4) fL Immature Gran % (0-4) % Seg Neutrophils % % Lymphocytes % % Monocytes % % Eosinophils % % Basophils % % Neutrophils # (1.6-8.9) K/mcL Lymphocytes # (0.6-4.6) K/mcL Monocytes # (0.0-1.3) K/mcL Eosinophils # (0.0-0.6) K/mcL Basophils # (0.0-0.2) K/mcL PT (9.4-12.1) Seconds INR APTT (26.0-36.0) Seconds Sodium (136-145) mEq/L Potassium (3.5-4.5) mEq/L Chloride (98-109) mEq/L Carbon Dioxide (19-29) mEq/L BUN (7-20) mg/dL Creatinine (0.57-1.11) mg/dL Est GFR ( Amer) (> 60) Est GFR (Non-Af Amer) (> 60) BUN/Creatinine Ratio (6-26) Glucose (70-99) mg/dL POC Glucose (58-89) Calculated Osmolality (280-300) Calcium (8.6-10.8) mg/dL Total Bilirubin (0.2-1.2) mg/dL Direct Bilirubin (0.0-0.5) mg/dL Indirect Bilirubin (0.0-1.2) mg/dL AST (5-34) Units/L ALT (0-55) Units/L Alkaline Phosphatase (38-126) Units/L Troponin I (0-0.03) ng/mL Serum Total Protein (6.0-8.3) g/dL Albumin (3.5-5.0) g/dL Globulin (2.4-3.5) g/dL Albumin/Globulin Ratio (1.1-2.2) Urine Color (Yellow) Urine Clarity (Clear) Urine pH (5.0-8.0) pH Units Ur Specific [place] (1.010-1.025) Urine Protein (Neg-Trace) mg/dL Urine Glucose (UA) (Normal) mg/dL Urine Ketones (Negative) mg/dL Urine Blood (Negative) Urine Nitrite (Negative) Urine Bilirubin (Negative) Urine Urobilinogen (Normal) mg/dL Ur Leukocyte Esterase (Negative) Urine Microscopic RBC (0-3) per hpf Urine Microscopic WBC (0-3) per hpf Ur Squamous Epith Cells (None-Few) per lpf Urine Bacteria (None-Few) per hpf Hyaline Casts (None-Few) per lpf Ur Culture Indicated? (NO) Urine Opiates Screen Negative (Vuhrhz=862) ng/mL Ur Barbiturates Screen Negative (Bxscpg=076) ng/mL Ur Phencyclidine Scrn Negative (Cutoff=25) ng/mL Ur Amphetamines Screen Negative (Kuydkd=0167) ng/mL U Benzodiazepines Scrn Negative (Rfjild=400) ng/mL Urine Cocaine Screen Negative (Cutoff= 300) ng/mL U Marijuana (THC) Screen Negative (Cutoff = 50) ng/mL Ethyl Alcohol (0-10) mg/dL - Diagnostic Studies CT scan - head Additional comments: Head CT 07/08/17 17:50 IMPRESSION: No acute intracranial abnormality. D/ / Conor Martinez MD / Conor Martinez MD Interpreting Provider: Conor Martinez MD Chest x-ray Additional comments: Chest X-Ray 07/08/17 17:49 IMPRESSION: No evidence of acute cardiopulmonary disease. D/ / Colby Banuelos MD / Colby Banuelos MD Interpreting Provider: Colby Banuelos MD
[2017-07-08] MEDS ORDERED: Dextrose Gel 15 GM PO PRN ×2 (21:21)
[2017-07-08] MEDS ORDERED: D5% in Water 1,000 ML IVC PRN (21:21)
[2017-07-08] MEDS ORDERED: *HR* Dextrose 50 % in Water (Syg) 50 ML SYRINGE IVP PRN (21:21)
--- NOTE | 2017-07-08 21:25 | Event Note ---
Date of Encounter: 07/08/17 Time of Encounter: 21:24 Patients and examined with nurse practitioner. Agree with assessment and plan
[2017-07-09] MEDS: Insulin LISPRO 300 UNITS/3 ML VIAL SQ SCH ×2 (08:00→12:21)
[2017-07-09 08:05] LABS: Basophils # 0.1 K/mcL (0.0-0.2); Basophils % 0.6 %; Eosinophils # 0.4 K/mcL (0.0-0.6); Hematocrit 36.5 % (35.3-44.9); Hemoglobin 11.6 g/dL (11.5-15.4); Immature Granulocytes % 0.6 % (0-4); Lymphocytes # 2.2 K/mcL (0.6-4.6); Lymphocytes % 22.1 %; Mean Corpuscular HGB Conc 31.8 g/dL (31.6-35.5); Mean Corpuscular Volume 84.9 fL (83.0-100.0); Mean Platelet Volume 9.7 fL (9.4-12.4); Monocytes # 0.7 K/mcL (0.0-1.3); Monocytes % 7.1 %; Neutrophils # 6.6 K/mcL (1.6-8.9); Platelet Count 323 K/mcL (140-400); Red Cell Distribution Width 14.3 % (11.5-14.5); Segmented Neutrophils % 65.6 %
[2017-07-09 08:34] LABS: BUN/Creatinine Ratio 14 (6-26); Blood Urea Nitrogen 12 mg/dL (7-20); Carbon Dioxide 26 mEq/L (19-29); Chloride 104 mEq/L (98-109); Chol/HDL Ratio 6.4 (0-4.9); Glucose 163 mg/dL (70-99); HDL Cholesterol 35 mg/dL (40-59); Osmolality,Calculated 293 (280-300); Potassium 3.9 mEq/L (3.5-4.5); Sodium 140 mEq/L (136-145); Triglycerides 1199 mg/dL (< 150); eGFR For African Americans > 60 (> 60); eGFR For Non-African Americans > 60 (> 60)
[2017-07-09 08:35] LABS: Cholesterol 224 mg/dL (< 200)
[2017-07-09 08:57] LABS: Thyroid Stimulating Hormone 1.909 mcIU/mL (0.350-4.840)
[2017-07-09] MEDS ORDERED: Aspirin Enteric Coated 81 MG Tablet PO SCH (09:00)
[2017-07-09] MEDS ORDERED: amLODIPine 5 MG TABLET PO SCH (09:00)
[2017-07-09] MEDS ORDERED: FLUoxetine 20 MG CAPSULE PO SCH (09:00)
[2017-07-09] MEDS ORDERED: Nitrofurantoin (BID) 100 MG CAPSULE PO SCH (09:00)
[2017-07-09] MEDS ORDERED: Valsartan 160 MG TABLET PO SCH (09:00)
--- NOTE | 2017-07-09 09:42 | Neurology - Consult Note ---
Date of Encounter: 07/09/17 Time of Encounter: 09:35 Assessment and Plan (1) Altered mental status Current Visit: Yes Status: Acute Patient with DM, HTN, hyperlipidemia developed an episode of not feeling well, slurred speech, confusion followed by fatigue and sleepiness lasting few hours in duration, without loss of consciousness or motor activity, unlikely epileptic phenomenon. Has had similar but milder episode few weeks ago associated with hyperglycemia. Suspect symptoms related to hyperglycemia, less likely epileptic seizure but agree with work up including MRI of brain, carotid artery duplex. Will not recommend antiepileptic therapy. EEG can be done as an outpatient, with neurology follow up within 2-3 weeks after discharge. Please continue medical and supportive care. Qualifiers: Altered mental status type: transient alteration of awareness Qualified Code(s): R40.4 - Transient alteration of awareness History of Present Illness Chief complaint: malaise, fatigue and sleepiness HPI: Ms. Garsia is a 51 year old female with PMH significant for DM, HTN, hyperlipidemia, CKD, depression, fibromyalgia who developed an episode of not feeling well, fatigue, confusion and sleepiness, lasting few hours in duration. Patient had a similar but milder episode few weeks ago, associated with glucose in 200's. This time, patient took a walk with her in the afternoon hour in a park , she developed 'just not feeling well'. Then on the way back home she was driving she was still not feeling well and was driving slow. She was able to manage driving back home of about 10-15 minutes duration and able to find the way although noticed that she was driving slow. After she went back home she went to sleep and it took about one hour before she could be awakened up. She did not check her glucose level this. She did not lose her consciousness. She just felt not right and was sleepy. CT of head showed no acute intracranial abnormality. Now she feels fine and back to normal. No discomforts reported. Initial glucose level 195 in ER. Past Med Surg Social Fam HX - Past Medical History Medical history: arthritis, diabetes, fibromyalgia, hyperlipidemia, hypertension , renal disease, other Psychiatric history: anxiety, depression - Past Surgical History Surgical History: cholecystectomy, orthopedic, other, other - Social History Smoking Status: Never smoker Smokeless Tobacco Status: No Alcohol use: none Drug use: none - Family History Mother Hx Family Cardiac Disorders: Yes ([place]) Hx Family Endocrine Disorder: Yes ([place]) Father Hx Family Cardiac Disorders: Yes (VALVE REPLACEMENT) Medications and Allergies Albuterol Sulfate [Proair Hfa] 2 puff IH Q4H PRN 07/02/17 [History] Amitriptyline [Elavil] 25 mg PO HS 07/02/17 [History] Amlodipine Besylate 2.5 mg PO DAILY 07/02/17 [History] Ammonium Lactate [Leydi-Hydrolac] 1 appl TP DAILY PRN 07/02/17 [History] Cholecalciferol (Vitamin D3) [Vitamin D3] 5,000 unit PO DAILY 07/02/17 [History] Cyanocobalamin (Vitamin B-12) [Vitamin B12] 1,000 mcg PO MOWEFR 07/02/17 [ History] FLUoxetine HCl [Fluoxetine HCl] 40 mg PO QAM 07/02/17 [History] Fluticasone Propionate Nasal [Flonase] 50 mcg NS DAILY PRN 07/02/17 [History] Glimepiride [Amaryl] 1 mg PO QAM 07/02/17 [History] Glimepiride [Amaryl] 1.5 mg PO QPM 07/02/17 [History] HYDROcodone/Acet 5/325 mg [[place] 5-325 mg] 1 tab PO BID PRN 07/02/17 [History] L. Acidophilus/Pectin, [place] [Acidophilus Probiotic Capsule] 1 each PO DAILY [History] Loratadine [Claritin] 10 mg PO DAILY PRN 07/02/17 [History] Metformin HCl [Glucophage] 1,000 mg PO BID 07/02/17 [History] Metoprolol [Lopressor] 25 mg PO HS 07/02/17 [History] Tizanidine HCl [Zanaflex] 4 mg PO TID PRN 07/02/17 [History] Valsartan [Diovan] 160 mg PO DAILY 07/02/17 [History] Aspirin Enteric Coated [Aspirin EC] 81 mg PO DAILY #30 07/03/17 [Rx] Rosuvastatin [Crestor] 20 mg PO HS #30 tab 07/03/17 [Rx] Esomeprazole Magnesium [Nexium] 20 mg PO QMWF 07/08/17 [History] Metoprolol [Lopressor] 12.5 tab PO QAM 07/08/17 [History] [place]-3S/Dha/Epa/Fish Oil [Fish Oil 1,200 mg Softgel] 1 each PO QAM 07/08/17 [ History] 3 Allergy/AdvReac Type Severity Reaction Status Date / Time Amoxicillin [From Augmentin] AdvReac Vomiting Verified 07/01/17 23:33 clavulanic acid AdvReac Vomiting Verified 07/01/17 23:33 [From Augmentin] Bsgjuqx-Bbn-Edu Reductase AdvReac Muscle Pain Verified 07/02/17 03:34 Inhibitor [Statins] All Systems: A 10-system review of systems was performed and is negative for pertinent findings except as documented above in the HPI. Physical Examination - Vital Signs Vital Signs: Initial Vital Signs Temp Pulse Resp BP Pulse Ox 98.5 F 86 16 169/83 95 07/08/17 16:53 07/08/17 16:53 07/08/17 16:53 07/08/17 16:53 07/08/17 16:53 - Constitutional General appearance: comfortable - Neurologic Sensorimotor examination: intact Detailed motor examination: grossly full strength in all extremities Motor examination - right side: 5/5: deltoids, biceps, triceps, wrist flexion, wrist extension, construction engineering manager, hip flexors, tibialis Anterior, quadriceps, toe extension (EHL), plantarflexion Motor examination - left side: 5/5: deltoids, biceps, triceps, wrist flexion, wrist extension, hip flexors, construction engineering manager, quadriceps, tibialis Anterior, toe extension (EHL), plantarflexion Detailed sensory examination: intact Posture: other (None) Reflexes: Biceps: 1+, Triceps: 1+, Brachioradialis: 1+, Patella: 1+, Achilles: 1 + Mental Status Examination: awake, alert, oriented to person, oriented to place, oriented to time, follows commands appropriately, answers questions appropriately, no agnosia, no aphasia, no aproxia Cranial nerve examination: PERRL, EOMI, visual g[place] intact, corneal reflexes brisk symmetrically, sensory to face intact, mastication intact, no facial asymmetry is present, no dysarthria, hearing is intact symmetrically, soft palate elevates bilaterally upon phonation, gag reflex intact, flexes SCM and trapezius muscles symmetrically with full power, tongue protrudes midline, no atrophy or facial fasiculations present Cerebellar examination: no dysmetria, performs finger to nose and heel to evans symmetrically without ataxia, no gait ataxia, no truncal ataxia, no difficulty with rapid alternating movements Results - Laboratory Findings CBC and BMP: 07/09/17 07:07 07/09/17 07:07 Abnormal lab findings: Abnormal lab results MCH 27.0 pg (28.0-33.3) L 07/09/17 07:07 Glucose 163 mg/dL (70-99) H 07/09/17 07:07 POC Glucose 189 (58-89) H 07/08/17 21:24 Albumin 3.4 g/dL (3.5-5.0) L 07/08/17 18:26 Globulin 4.2 g/dL (2.4-3.5) H 07/08/17 18:26 Albumin/Globulin Ratio 0.8 (1.1-2.2) L 07/08/17 18:26 Triglycerides 1199 mg/dL (< 150) H 07/09/17 07:07 Cholesterol 224 mg/dL (< 200) H D 07/09/17 07:07 HDL Cholesterol 35 mg/dL (40-59) L 07/09/17 07:07 Cholesterol/HDL Ratio 6.4 (0-4.9) H 07/09/17 07:07 Urine Protein >=300 mg/dL (Neg-Trace) H 07/08/17 19:20 Urine Blood Trace (Negative) H 07/08/17 19:20 Urine Microscopic WBC 5-15 per hpf (0-3) H 07/08/17 19:20 Ur Squamous Epith Cells Many per lpf (None-Few) H 07/08/17 19:20 Ur Culture Indicated? YES (NO) A 07/08/17 19:20 Consult Discharge Plan - Plan Referrals: Mukul Reddy DO [Primary Care Provider] -
--- NOTE | 2017-07-09 11:28 | Discharge Summary ---
Date of Encounter: 07/09/17 Time of Encounter: 11:28 - Discharge Diagnosis (1) Altered mental status Priority: Primary Status: Resolved Qualifiers: Altered mental status type: transient alteration of awareness Qualified Code(s): R40.4 - Transient alteration of awareness (2) Hyperlipidemia Priority: Secondary Status: Chronic Qualifiers: Hyperlipidemia type: unspecified Qualified Code(s): E78.5 - Hyperlipidemia , unspecified (3) Hypertension Priority: Secondary Status: Chronic Qualifiers: Hypertension type: essential hypertension Qualified Code(s): I10 - Essential (primary) hypertension (4) Type 2 diabetes mellitus Priority: Secondary Status: Chronic Qualifiers: Diabetes mellitus complication status: without complication Diabetes mellitus long term care pharmacist insulin use: without group home use Qualified Code(s): E11.9 - Type 2 diabetes mellitus without complications (5) Slurred speech Priority: Primary Status: Resolved - Discharge Medications Home Medications: Albuterol Sulfate [Proair Hfa] 2 puff IH Q4H PRN 07/02/17 [History] Amitriptyline [Elavil] 25 mg PO HS 07/02/17 [History] Amlodipine Besylate 2.5 mg PO DAILY 07/02/17 [History] Ammonium Lactate [Leydi-Hydrolac] 1 appl TP DAILY PRN 07/02/17 [History] Cholecalciferol (Vitamin D3) [Vitamin D3] 5,000 unit PO DAILY 07/02/17 [History] Cyanocobalamin (Vitamin B-12) [Vitamin B12] 1,000 mcg PO MOWEFR 07/02/17 [ History] FLUoxetine HCl [Fluoxetine HCl] 40 mg PO QAM 07/02/17 [History] Fluticasone Propionate Nasal [Flonase] 50 mcg NS DAILY PRN 07/02/17 [History] Glimepiride [Amaryl] 1 mg PO QAM 07/02/17 [History] Glimepiride [Amaryl] 1.5 mg PO QPM 07/02/17 [History] HYDROcodone/Acet 5/325 mg [[place] 5-325 mg] 1 tab PO BID PRN 07/02/17 [History] L. Acidophilus/Pectin, [place] [Acidophilus Probiotic Capsule] 1 each PO DAILY [History] Loratadine [Claritin] 10 mg PO DAILY PRN 07/02/17 [History] Metformin HCl [Glucophage] 1,000 mg PO BID 07/02/17 [History] Metoprolol [Lopressor] 25 mg PO HS 07/02/17 [History] Tizanidine HCl [Zanaflex] 4 mg PO TID PRN 07/02/17 [History] Valsartan [Diovan] 160 mg PO DAILY 07/02/17 [History] Aspirin Enteric Coated [Aspirin EC] 81 mg PO DAILY #30 07/03/17 [Rx] Rosuvastatin [Crestor] 20 mg PO HS #30 tab 07/03/17 [Rx] Esomeprazole Magnesium [Nexium] 20 mg PO QMWF 07/08/17 [History] Metoprolol [Lopressor] 12.5 tab PO QAM 07/08/17 [History] [place]-3S/Dha/Epa/Fish Oil [Fish Oil 1,200 mg Softgel] 1 each PO QAM 07/08/17 [ History] Allergies/Adverse Reactions: 3 Allergy/AdvReac Type Severity Reaction Status Date / Time Amoxicillin [From Augmentin] AdvReac Vomiting Verified 07/01/17 23:33 clavulanic acid AdvReac Vomiting Verified 07/01/17 23:33 [From Augmentin] Nlyuujm-Ise-Vux Reductase AdvReac Muscle Pain Verified 07/02/17 03:34 Inhibitor [Statins] Procedures/tests Complete & Pending: Procedures Performed prior 72 hours Category Date Time Status MR head/brain wo con [MR] Routine MRI 07/08/17 21:05 Completed EV carotid duplex imaging BI Routine Y 07/09/17 21:05 Completed Date of admission: 07/08/17 20:50 Primary care physician: Mukul Reddy DO Consults: 07/08/17 21:05 Consult to Neurology [CONS] Routine Consulting Provider: Neu[facility] Reason for Consult: transient slurred speech and AMS Call Completed: No Discharging clinician: Kenneth Hand Anticipated date of discharge: 07/09/17 - Patient Status Disposition: Home, Self-Care Condition: Good Functional capacity at discharge: independent ambulation Overall status at discharge: patient is back to baseline - Discharge Instructions Follow Up With: Mukul Reddy DO [Primary Care Provider] - - Diet and Activity Activity: resume usual activities as tolerated Diet: diabetic diet, low fat, low cholesterol, low salt diet Interval History: Ms. Garsia is a 51 year old female with hypertension, hyperlipidemia, fibromyalgia, type 2 diabetes, presented to the emergency department 07/08 with complaints of transient slurred speech and altered mental status. Patient reports that approximately 4 weeks ago she had an episode where her mouth became suddenly dry, she became disoriented, and then she does not remember what happened, per family report her speech was slurred and she was not responsive patient reports she fell asleep and when she woke up she was at her baseline. She reports this happened again -prior to presentation with the exact same sequence of symptoms. Evaluation in emergency department included a head CT which showed no acute intracranial abnormality, EKG showed no normal sinus rhythm and no acute changes , chest x-ray showed no acute disease. Troponin was negative at 0.00. Urinalysis was negative for infection. White blood cell count was mildly elevated at 12.3. She was mildly hyperglycemic with glucose of 195. Hospital course: Patient continued to be asymptomatic throughout her hospital stay. She was recently discharged exactly a week ago for pancreatitis during which he had an echocardiogram that was essentially normal. Her carotid Doppler ultrasounds are within normal limits. She is already on Crestor and aspirin for hyperlipidemia. Brain MRI done this morning is completely normal. Neurologic evaluation is noted, no recommendations. Patient had hypoglycemia and elevated blood pressure on arrival, and he can describe possibly explain her symptoms. She has no neurologic deficits. She stable to be discharged home to continue her current medications. Educated about the plan, verbalizes understanding. Follow up with PCP - Time Spent with Patient Total time spent providing and/or coordinating discharge services: Less than 30 minutes - Constitutional Vitals: Temp Pulse Resp BP Pulse Ox 98.3 F 86 16 146/82 98 07/09/17 07:49 07/09/17 07:49 07/09/17 07:49 07/09/17 07:49 07/09/17 08:00 General appearance: Present: A&O X 3, pleasant, no acute distress, obese - Head Head exam: Present: atraumatic, normocephalic - Eye Eye exam: Present: PERRL, conjuntiva pink, sclera anicteric Pupils: Present: PERRL - Neck Neck exam general surgery: Present: supple, trachea midline. Absent: lymphadenopathy - Respiratory Respiratory exam: Present: CTAB. Absent: accessory muscle use, rales, rhonchi, wheezes - Cardiovascular Cardiovascular exam: Present: RRR, +S1, +S2. Absent: diastolic murmur, gallop, rubs, systolic murmur - GI/Abdominal GI/Abdominal exam: Present: normal bowel sounds, soft, no peritoneal signs. Absent: distended, tenderness - Extremities Exam Extremities exam: Present: warm, radial pulses palpable and symmetrical. Absent : calf tenderness, cyanotic, pedal edema - Neurological Exam Neurological exam: Present: alert, CN II-XII intact, oriented X3, no focal deficits. Absent: pronater drift, facial droop, speech deficit - Skin Skin exam: Present: dry, intact
[2017-07-09 11:35] VITALS: BP 126/77
--- NOTE | 2017-07-11 10:18 | Carotid Imaging Report ---
Carotid Duplex Patient Name:Lisa Garsia Order Number:[id number] Procedure Date:07/09/2017 Date:1965Age:51 yrs Gender:Female Location:[facility] Room #: 3B53 Industrial X Ray Operator:Domenico Hernandez RDCS Referring MD:Krissy Tyson CNP sustainable development policy analyst:Mukul Reddy DO Reading MD:Robert Michelle MD Primary Indications:Slurred speach Risk Factors Yes/No Hypertension Yes Diabetes Yes Hypercholesterolemia Yes Impressions: The bilateral carotid arteries are normal throughout. Recommendations: After imaging the patient returned to their room. Findings Carotid Duplex: Becker scale imaging combined with Doppler flow analysis suggests normal findings bilaterally. Right: The right proximal common carotid artery has a PSV of 124 cm/s and a EDV of 22 cm/s. The right mid common carotid artery has a PSV of 91 cm/s and a EDV of 17 cm/s. The right distal common carotid artery has a PSV of 86 cm/s and a EDV of 17 cm/s. The right bifurcation has a PSV of 50 cm/s and a EDV of 15 cm/s. The right proximal internal carotid artery has a PSV of 51 cm/s and a EDV of 17 cm/s. The right mid internal carotid artery has a PSV of 49 cm/s and a EDV of 22 cm/s. The right distal internal carotid artery has a PSV of 109 cm/s and a EDV of 42 cm/s. The right eca has a PSV of 101 cm/s and a EDV of 9 cm/s. The right vertebral artery has a PSV of 52 cm/s and a EDV of 12 cm/s. Left: The left proximal common carotid artery has a PSV of 146 cm/s and a EDV of 22 cm/s. The left mid common carotid artery has a PSV of 108 cm/s and a EDV of 21 cm/s. The left distal common carotid artery has a PSV of 80 cm/s and a EDV of 18 cm/s. The left bifurcation has a PSV of 63 cm/s and a EDV of 17 cm/s. The left proximal internal carotid artery has a PSV of 67 cm/s and a EDV of 21 cm/s. The left mid internal carotid artery has a PSV of 66 cm/s and a EDV of 22 cm/s. The left distal internal carotid artery has a PSV of 109 cm/s and a EDV of 40 cm/s. The left eca has a PSV of 173 cm/s and a EDV of 16 cm/s. The left vertebral artery has a PSV of 56 cm/s and a EDV of 19 cm/s. Prior Study: No prior study available for comparison. Carotid Results Right PSV EDV Assessment Proximal CCA 124 22 Normal Mid CCA 91 17 Normal Distal CCA 86 17 Normal Bifurcation 50 15 Normal Proximal ICA 51 17 Normal Mid ICA 49 22 Normal Distal ICA 109 42 Normal ECA 101 9 Normal Vertebral Artery 52 12 Normal Left PSV EDV Assessment Proximal CCA 146 22 Normal Mid CCA 108 21 Normal Distal CCA 80 18 Normal Bifurcation 63 17 Normal Proximal ICA 67 21 Normal Mid ICA 66 22 Normal Distal ICA 109 40 Normal ECA 173 16 Normal Vertebral Artery 56 19 Normal Ratio's Right ICA/CCA Ratio: 1.20 ICA/CCA Values: 109/91 Left ICA/CCA Ratio: 1.00 ICA/CCA Values: 109/108 Updated by Robert Michelle MD on 07/11/2017 10:08:55 AM electronically signed on 07/11/2017 10:11:31 AM with status of Final
--- NOTE | 2017-07-11 10:33 | Electrocardiograph Report ---
[place] [id number] Test Date: 2017-07-08 Pat Name: Lisa Garsia Department: 104 Room: 3B Gender: F Yard Clerk: TMR : 1965 Requested By: Roc Rivera Order Number: [id number] Reading MD: Issac Jordan MD Measurements Intervals Alexis Rate: 90 P: 42 NM: 134 QRS: 15 QRSD: 98 T: 39 QT: 362 QTc: 409 Interpretive Statements SINUS RHYTHM MODERATE VOLTAGE CRITERIA FOR LVH Electronically Signed On 07-11-2017 10:32:19 EDT by Issac Jordan MD
[2017-07-11 21:59] LABS: Folate 17.6 ng/mL (7.0-31.4)
== END 2017-07-09 14:40 | disposition home or self-care (01) ==
LOC: 3BNU 16:50 → EMEROO 16:50 → SUATTDRO 20:50 → 3BNU 21:15
PROVIDERS: ADMIT Internal Medicine Hematology & Oncology; ATTEND Internal Medicine